=== PATIENT | female | born 1935 | race Caucasian/White ===

== ENCOUNTER 2023-11-24 12:08 | Inpatient (IN) ==
[2023-11-24 12:43] LABS: Basophils # (auto) 0.02 K/uL (0.00-0.20); Basophils % (auto) 0.2 %; Hemoglobin 15.4 g/dl (12.0-16.0); Immature Granulocytes # (auto) 0.04 K/uL (0.01-0.20); Immature Granulocytes % (auto) 0.4 %; Lymphocytes % (auto) 9.2 %; Mean Corpuscular Hemoglobin 33.1 pg (25.0-34.0); Mean Corpuscular Hgb Conc 34.2 g/dL (32.0-36.0); Mean Corpuscular Volume 96.8 fL (80.0-100.0); Mean Platelet Volume 9.6 fL (9.4-12.4); Monocytes # (auto) 1.07 K/uL (0.11-0.59); Monocytes % (auto) 10.9 %; Neutrophils # (auto) 7.75 K/uL (1.40-6.50); Neutrophils % (auto) 79.3 %; Platelet Count 183 K/uL (130-400); RDW Coefficient of Variation 11.8 % (11.5-14.5); RDW Standard Deviation 41.7 fL (36.4-46.3); Red Blood Count 4.65 M/uL (4.20-5.40); White Blood Count 9.78 K/ul (4.8-10.8)
[2023-11-24 12:48] LABS: Anion Gap 9 (3-11); BUN Creatinine Ratio 15.7 (10-20); Blood Urea Nitrogen 11 mg/dl (6-23); Calcium 9.1 mg/dl (8.6-10.3); Carbon Dioxide 26 mmol/L (21-32); Chloride 103 mmol/L (98-107); Est GFR (African American) 90.9 ml/min; Est GFR (Non-African American) 78.5 ml/min; Glucose 109 mg/dl (70-99(Fasting)); Potassium 4.1 mmol/L (3.5-5.1); Sodium 138 mmol/L (136-145)
--- NOTE | 2023-11-24 12:50 | CT Scan Report ---
CT OF THE HEAD WITHOUT CONTRAST CLINICAL HISTORY: fall, confusion COMPARISON STUDY: No previous studies for comparison. TECHNIQUE: Helical axial images of the head were obtained without IV contrast. Automated exposure con trol was utilized for the study. A dose lowering technique was utilized adhering to the principles o f ALARA. FINDINGS: No acute intracranial hemorrhage, midline shift or mass effect is present. Mild ventricular dilatation is likely due to central atrophy. Extensive white matter hypodense foci favor small vesse l disease. The basal cisterns are patent. No extra-axial collections are present. There are no findin gs to suggest acute dural sinus thrombosis or acute territorial infarct. No significant calvarial abn ormalities are present. Visualized portions of the sinuses and mastoid air cells are clear. IMPRESSION: 1. No acute intracranial findings. 2. No calvarial fractures. ACT 112: Negative or not required by law. Electronically signed by: Kolton Contreras M.D. 11/24/2023 12:49 PM
--- NOTE | 2023-11-24 12:57 | CT Scan Report ---
CT OF THE CERVICAL SPINE WITHOUT CONTRAST CLINICAL HISTORY: Fall, dementia, inc confusion COMPARISON STUDY: No previous studies for comparison. TECHNIQUE: Helical axial images of the cervical spine were obtained without IV contrast. Sagittal a nd coronal reconstructions were viewed. Automated exposure control was utilized for the study. A do se lowering technique was utilized adhering to the principles of ALARA. FINDINGS: Alignment of the cervical spine is anatomic. Vertebral body heights are maintained. No acut e cervical spine fracture or subluxation is present. There is no prevertebral edema. Facet joints are intact. Moderate multilevel disc space narrowing, endplate osteophytosis and facet arthrosis is pre sent. IMPRESSION: No acute cervical spine fracture or subluxation. ACT 112: Negative or not required by law. Electronically signed by: Kolton Contreras M.D. 11/24/2023 12:55 PM
--- NOTE | 2023-11-24 13:05 | XRay Report ---
XR hip LT 2V w pelvis CLINICAL HISTORY: fall, pain COMPARISON: None FINDINGS: Sacroiliac joints and symphysis pubis are intact. There are no acute fractures within the pelvis or hips. There are no osseous lesions. IMPRESSION: No fractures within the pelvis or hips. ACT 112: Negative or not required by law. Electronically signed by: Kolton Contreras M.D. 11/24/2023 1:04 PM
--- NOTE | 2023-11-24 13:54 | Emergency Department Note ---
Impression & Plan Acute UTI, Acute confusion ED Provider Note NAME: ALLAN FORBES AGE: 88 SEX: F : 1935 ARRIVES VIA: Ambulance INFORMANT: Patient, ED PROVIDER(S): Wilber Crum MD CHIEF COMPLAINT: Confusion, left hip pain HPI: This is an 88-year-old female history of dementia presenting for confusion/fall. Patient is a resident of [facility] and EMS was called for increased confusion and left hip pain. Patient had a ground-level fall yesterday. Unclear if head trauma, LOC or blood thinners. Patient history is accompanied by her ex- who states that she does have fairly advanced dementia and is nonverbal at this time. This is still more lethargic than her usual self. She is able to walk. Patient is arousable but is fairly fatigued upon my exam and unable to contribute any exam or questioning. ROS: Unable to obtain PHYSICAL EXAMINATION: General: Chronic ill-appearing Head: Normocephalic and atraumatic Eyes: Normal inspection, extraocular muscles intact Ear, nose, throat: Normal external exam Neck: Normal range of motion Respiratory: lungs clear to auscultation bilaterally Cardiovascular: Regular rate/rhythm, no murmur GI: Soft, nontender Extremities: Moves all extremities without obvious deformity Neuro: Arousable, symmetric facies Skin: Warm, dry, and intact MEDICAL DECISION MAKING: This is an 88-year-old female presenting for confusion/fall. Will do CT of the head/C-spine as she did have ground-level fall with unknown head trauma. In addition we will do basic blood work, hip x-ray of the leftthere is reported pain here without obvious deformity. -Patient CT imaging of the head and C-spine revealed no acute traumatic injury -X-ray of the left hip reveals no acute osseous fracture or dislocation by my independent interpretation -Patient's blood work shows no leukocytosis or anemia. No significant electrolyte disturbances. -Urinalysis is positive for signs of UTI. Will give ceftriaxone at this time -Attempted to ambulate the patient and she was unable to even sit up as per tech -Will admit the patient for increasing confusion secondary to UTI -discussed care with hospitalist, Dr Menard. Differential diagnosis: Intracranial hemorrhage, subdural hematoma, sepsis, UTI, hip fracture ER treatment provided: See below Diagnostics interpreted by me: ECG: None Cardiac Monitoring: An order was placed for continuous cardiac monitoring. The monitor shows a rate of 78 with sinus rhythm. Laboratory studies: As stated above and show below. Imaging studies: See below. Past Med/Surg History Problem List (Updated 11/24/23 @ 15:30 by Wilber Crum MD) Acute confusion (Acute) Acute UTI (Acute) Social History Smoking Status: Unknown if ever smoked Preferred Language: Maori Feels Safe at Home: Yes Results & Data (ED) Vital Signs Vital Signs - 24 hr 11/24/23 12:16 11/24/23 13:32 11/24/23 14:00 Temperature 37.1 C Temperature Source Axillary Pulse Rate 71 78 Pulse Rate [Apical] 80 Respiratory Rate 22 20 Blood Pressure 181/95 H Blood Pressure [Left Arm] 212/96 H Blood Pressure Mean 123 Blood Pressure Mean [Left Arm] 134 Pulse Oximetry 96 94 Oxygen Delivery Method Room Air Room Air Sepsis Recent Fever Within 48 Hours No Sepsis New/Unexplained Change in Mental Status N/A Sepsis Action Taken by Nursing No Action Required 11/24/23 14:53 11/24/23 15:23 Temperature Temperature Source Pulse Rate Pulse Rate [Apical] 87 80 Respiratory Rate 20 20 Blood Pressure Blood Pressure [Left Arm] 201/100 H 199/102 H Blood Pressure Mean Blood Pressure Mean [Left Arm] 133 134 Pulse Oximetry 96 95 Oxygen Delivery Method Room Air Room Air Sepsis Recent Fever Within 48 Hours Sepsis New/Unexplained Change in Mental Status Sepsis Action Taken by Nursing Laboratory Data 11/24/23 12:21 11/24/23 12:21 Lab Results 11/24/23 11/24/23 Range/Units 12:21 13:40 WBC 9.78 (4.8-10.8) K/ul RBC 4.65 (4.20-5.40) M/uL Hgb 15.4 (12.0-16.0) g/dl Hct 45.0 (37.0-47.0) % MCV 96.8 (80.0-100.0) fL MCH 33.1 (25.0-34.0) pg MCHC 34.2 (32.0-36.0) g/dL RDW Std Deviation 41.7 (36.4-46.3) fL RDW Coeff of William 11.8 (11.5-14.5) % Plt Count 183 (130-400) K/uL MPV 9.6 (9.4-12.4) fL Immature Gran % (Auto) 0.4 % Neut % (Auto) 79.3 % Lymph % (Auto) 9.2 % [place] % (Auto) 10.9 % Eos % (Auto) 0.0 % Baso % (Auto) 0.2 % Neut # (Auto) 7.75 H (1.40-6.50) K/uL Lymph # (Auto) 0.90 L (1.20-3.40) K/uL [place] # (Auto) 1.07 H (0.11-0.59) K/uL Eos # (Auto) 0.00 (0.00-0.50) K/uL Baso # (Auto) 0.02 (0.00-0.20) K/uL Immature Gran # (Auto) 0.04 (0.01-0.20) K/uL Sodium 138 (136-145) mmol/L Potassium 4.1 (3.5-5.1) mmol/L Chloride 103 (98-107) mmol/L Carbon Dioxide 26 (21-32) mmol/L Anion Gap 9 (3-11) BUN 11 (6-23) mg/dl Creatinine 0.70 (0.6-1.2) mg/dl Est Cr Clr Drug Dosing Not Reportable Est GFR ( Amer) 90.9 ml/min Est GFR (Non-Af Amer) 78.5 ml/min BUN/Creatinine Ratio 15.7 (10-20) Glucose 109 H (70-99(Fasting)) mg/dl Calcium 9.1 (8.6-10.3) mg/dl Urine Color Yellow Urine Appearance Cloudy A (Clear) Urine pH 6.0 (4.5-7.5) Ur Specific [place] 1.018 (1.000-1.030) Urine Protein Trace H (Negative) Urine Glucose (UA) Negative (Negative) Urine Ketones Trace H (Negative) Urine Blood Trace H (Negative) Urine Nitrite Positive A (Negative) Urine Bilirubin Negative (Negative) Urine Urobilinogen Negative (Negative) Ur Leukocyte Esterase 2+ H (Negative) Urine WBC (Auto) 21-50 H (0-5) /hpf Urine RBC (Auto) 0-2 (0-2) /hpf U Hyaline Cast (Auto) 0-2 (0-2) /lpf U Epithel Cells (Auto) 0-2 (0-2) /hpf Urine Bacteria (Auto) 4+ H (None Seen) Administered Medications Discontinued Medications Ceftriaxone Sodium (Rocephin) 2,000 mg in 50 mls @ 100 mls/hr IV NOW STA Stop: 11/24/23 14:56 Last Infusion: 11/24/23 15:07 Dose: Infused Documented By: Admin: 11/24/23 14:37 Dose: 100 mls/hr Documented By: [facility] Imaging Data Radiologist's Impression: Cervical Spine CT 11/24/23 12:21 CT OF THE CERVICAL SPINE WITHOUT CONTRAST CLINICAL HISTORY: Fall, dementia, inc confusion COMPARISON STUDY: No previous studies for comparison. TECHNIQUE: Helical axial images of the cervical spine were obtained without IV contrast. Sagittal and coronal reconstructions were viewed. Automated exposure control was utilized for the study. A dose lowering technique was utilized adhering to the principles of ALARA. FINDINGS: Alignment of the cervical spine is anatomic. Vertebral body heights are maintained. No acute cervical spine fracture or subluxation is present. There is no prevertebral edema. Facet joints are intact. Moderate multilevel disc space narrowing, endplate osteophytosis and facet arthrosis is present. IMPRESSION: No acute cervical spine fracture or subluxation. ACT 112: Negative or not required by law. Electronically signed by: Kolton Contreras M.D. 11/24/2023 12:[address] 11/24/23 12:21 CT OF THE HEAD WITHOUT CONTRAST CLINICAL HISTORY: fall, confusion COMPARISON STUDY: No previous studies for comparison. TECHNIQUE: Helical axial images of the head were obtained without IV contrast. Automated exposure control was utilized for the study. A dose lowering technique was utilized adhering to the principles of ALARA. FINDINGS: No acute intracranial hemorrhage, midline shift or mass effect is present. Mild ventricular dilatation is likely due to central atrophy. Extensive white matter hypodense foci favor small vessel disease. The basal cisterns are patent. No extra-axial collections are present. There are no findings to suggest acute dural sinus thrombosis or acute territorial infarct. No significant calvarial abnormalities are present. Visualized portions of the sinuses and mastoid air cells are clear. IMPRESSION: 1. No acute intracranial findings. 2. No calvarial fractures. ACT 112: Negative or not required by law. Electronically signed by: Kolton Contreras M.D. 11/24/2023 12:49 PM Hip/Pelvis X-Ray 11/24/23 12:21 XR hip LT 2V w pelvis CLINICAL HISTORY: fall, pain COMPARISON: None FINDINGS: Sacroiliac joints and symphysis pubis are intact. There are no acute fractures within the pelvis or hips. There are no osseous lesions. IMPRESSION: No fractures within the pelvis or hips. ACT 112: Negative or not required by law. Electronically signed by: Kolton Contreras M.D. 11/24/2023 1:04 PM Discharge Plan Visit Data Chief Complaint: Fall Stated Complaint: fall ED Provider: Wilber Crum Discharge Problem: Acute UTI, Acute confusion Forms Stand Alone Forms: [facility] Referrals Referrals: [facility] [Primary Care Provider] -
[2023-11-24 14:04] LABS: Appearance Urine Cloudy (Clear); Bacteria Urine Automated 4+ (None Seen); Bilirubin Urine Negative (Negative); Blood Urine Trace (Negative); Cast Urine Automated 0-2 /lpf (0-2); Color Urine Yellow; Epithelial Cell Urine Auto 0-2 /hpf (0-2); Glucose Urine UA Negative (Negative); Ketones Urine Trace (Negative); Leukocyte Esterase Urine 2+ (Negative); Nitrite Urine Positive (Negative); Protein Urine Trace (Negative); RBC Urine Automated 0-2 /hpf (0-2); Specific Gravity Urine 1.018 (1.000-1.030); Urobilinogen Urine Negative (Negative); WBC Urine Automated 21-50 /hpf (0-5)
[2023-11-24] MEDS: cefTRIAXone SODIUM 2,000 MG/50 ML BAG IV STA (14:37)
[2023-11-24] MEDS ORDERED: ONDANSETRON INJ 2 MG/ML 2 ML VIAL IV PRN (16:04)
--- NOTE | 2023-11-24 16:06 | History & Physical Report ---
Date of Service November 24, 2023 Assessment & Plan (1) Acute metabolic encephalopathy: (2) Complicated UTI (urinary tract infection): Plan Pt is an 88yoF with PMHx significant for dementia, HTN, asthma, RLS, insomnia presenting with a fall in the setting of concern for increased alteration in her mental status. Acute Metabolic Encephalopathy Complicated UTI Presenting from [facility] with concern for increased alteration in mental status and fall Known Hx of dementia UA suggestive of infection Urine Cx pending Head CT unremarkable No concerns for sepsis at this time Holding home sedating meds- melatonin, requip. Resume as able Delirium precautions with frequent reorientation Received dose of IV Rocephin in the ED Noted pt has had monthly UTIs in the last 2 months (last culture on November 20), cultures both grew E coli sensitive to Rocephin Continue with IV Rocephin at this time, follow repeat urine Cx Continue to monitor Fall Pt with unwitnessed fall at [facility] Head CT, hip/pelvis xray and cervical spine CT all unremarkable Likely in setting of UTI above PT/OT Hypertension Pt with known Hx of hypertension On Norvasc 2.5mg daily at home Currently uncontrolled, BP 193/90 PRN hydralazine Continue to monitor Continue other home meds as ordered CODE STATUS: DNR/DNI per [facility] documentation. Attempts to contact son and daughter listed in the chart unsuccessful. Diet: clears until improved mental status DVT prophylaxis: Lovenox SQ Dispo: Med/Surg History of Present Illness Chief Complaint: AMS Primary Care Provider: [facility] Pt is an 88yoF with PMHx significant for dementia, HTN, asthma, RLS, insomnia presenting with a fall in the setting of concern for increased alteration in her mental status. Pt unable to provide history due to cognitive status. Attempts made to contact pt's son and daughter listed in the chart via telephone with no one picking up. History obtained from [facility] records and ED provider. Pt had a fall at [facility] yesterday and per reports there was concern for worsening of her mental status. She has dementia at baseline for which she takes medication. There was concern for left hip pain and imaging was done in the ED which did not show any acute fractures. It was unknown whether the pt hit her head with the fall but head CT did not show an acute bleed. Workup in the ED revealed a UTI. Allergies Allergy/AdvReac Type Severity Reaction Status Date / Time No Known Allergies Allergy Unverified 11/24/23 15:49 Home Medications Medication Instructions Recorded Confirmed Type amlodipine 2.5 mg tablet 2.5 mg PO .DAILY AT 0800 11/24/23 11/24/23 History donepezil 5 mg tablet 5 mg PO .DAILY AT 1700 11/24/23 11/24/23 History melatonin 1 mg disintegrating 3 mg PO HS 11/24/23 11/24/23 History tablet memantine 10 mg tablet 10 mg PO BID 11/24/23 11/24/23 History montelukast 10 mg tablet 10 mg PO HS 11/24/23 11/24/23 History polyethylene glycol 3350 17 17 g PO DAILY PRN Constipation 11/24/23 11/24/23 History gram/dose oral powder (Miralax) ropinirole 0.5 mg tablet 0.5 mg PO BID 11/24/23 11/24/23 History Past Med/Surg History Problem List (Updated 11/24/23 @ 19:37 by Ryann Menard MD) Complicated UTI (urinary tract infection) Acute metabolic encephalopathy Acute confusion (Acute) Acute UTI (Acute) Social History Smoking Status: Unknown if ever smoked Preferred Language: Armenian Current Living Situation: Personal Care Facility Feels Safe at Home: Yes Assistive Devices Comment: per ed staff she is ambulatory at baseline Review of Systems Review of Systems: Unobtainable due to cognitive status Physical Exam Physical Exam: General: pt unarousable, mutters but does not open eyes Psych: lethargic Neuro: lethargic, does not awaken to verbal stimuli nor sternal rub HEENT: NC/AT CV: RRR Resp: Breath sounds clear bilaterally Abdomen: Soft Extremities: curled Results & Data Results & Data Vital Signs (Past 12 Hours) Vital Signs Temp Pulse Pulse Resp BP BP Pulse Ox 11/24/23 15:23 80 20 199/102 H 95 11/24/23 14:53 87 20 201/100 H 96 11/24/23 14:00 80 20 212/96 H 94 11/24/23 13:32 78 11/24/23 12:16 37.1 C 71 22 181/95 H 96 O2 Del Method 11/24/23 15:23 Room Air 11/24/23 14:53 Room Air 11/24/23 14:00 Room Air 11/24/23 13:32 11/24/23 12:16 Room Air Diagnostic Findings Cervical Spine CT 11/24/23 12:21 CT OF THE CERVICAL SPINE WITHOUT CONTRAST CLINICAL HISTORY: Fall, dementia, inc confusion COMPARISON STUDY: No previous studies for comparison. TECHNIQUE: Helical axial images of the cervical spine were obtained without IV contrast. Sagittal and coronal reconstructions were viewed. Automated exposure control was utilized for the study. A dose lowering technique was utilized adhering to the principles of ALARA. FINDINGS: Alignment of the cervical spine is anatomic. Vertebral body heights are maintained. No acute cervical spine fracture or subluxation is present. There is no prevertebral edema. Facet joints are intact. Moderate multilevel disc space narrowing, endplate osteophytosis and facet arthrosis is present. IMPRESSION: No acute cervical spine fracture or subluxation. ACT 112: Negative or not required by law. Electronically signed by: Kolton Contreras M.D. 11/24/2023 12:[address] 11/24/23 12:21 CT OF THE HEAD WITHOUT CONTRAST CLINICAL HISTORY: fall, confusion COMPARISON STUDY: No previous studies for comparison. TECHNIQUE: Helical axial images of the head were obtained without IV contrast. Automated exposure control was utilized for the study. A dose lowering technique was utilized adhering to the principles of ALARA. FINDINGS: No acute intracranial hemorrhage, midline shift or mass effect is present. Mild ventricular dilatation is likely due to central atrophy. Extensive white matter hypodense foci favor small vessel disease. The basal cisterns are patent. No extra-axial collections are present. There are no findings to suggest acute dural sinus thrombosis or acute territorial infarct. No significant calvarial abnormalities are present. Visualized portions of the sinuses and mastoid air cells are clear. IMPRESSION: 1. No acute intracranial findings. 2. No calvarial fractures. ACT 112: Negative or not required by law. Electronically signed by: Kolton Contreras M.D. 11/24/2023 12:49 PM Hip/Pelvis X-Ray 11/24/23 12:21 XR hip LT 2V w pelvis CLINICAL HISTORY: fall, pain COMPARISON: None FINDINGS: Sacroiliac joints and symphysis pubis are intact. There are no acute fractures within the pelvis or hips. There are no osseous lesions. IMPRESSION: No fractures within the pelvis or hips. ACT 112: Negative or not required by law. Electronically signed by: Kolton Contreras M.D. 11/24/2023 1:04 PM
[2023-11-24] MEDS ORDERED: Patient's HEIGHT &/or WEIGHT Needed STA (18:27)
[2023-11-24] MEDS: hydrALAZINE HCL 20 MG/ML VIAL IV ONE (19:40)
[2023-11-24] MEDS: ACETAMINOPHEN 1,000 MG/100 ML VIAL IV PRN (20:46)
[2023-11-24] MEDS: MONTELUKAST SODIUM 10 MG TABLET PO SCH (20:47)
[2023-11-24] MEDS: DONEPEZIL HCL 5 MG TAB PO SCH (20:47)
[2023-11-24] MEDS: ENOXAPARIN INJ 40 MG/0.4 ML SYR SQ SCH (20:47)
[2023-11-24] MEDS: MEMANTINE HCL 10 MG TAB PO SCH (20:47)
[2023-11-24] MEDS ORDERED: MELATONIN 3 MG TAB PO SCH (21:00)
[2023-11-24] MEDS ORDERED: rOPINIRole HCL 0.25 MG TABLET PO SCH (21:00)
[2023-11-25 06:53] LABS: Basophils # (auto) 0.03 K/uL (0.00-0.20); Basophils % (auto) 0.3 %; Eosinophils # (auto) 0.02 K/uL (0.00-0.50); Eosinophils % (auto) 0.2 %; Hematocrit (blood only) 44.8 % (37.0-47.0); Hemoglobin 15.3 g/dl (12.0-16.0); Immature Granulocytes # (auto) 0.03 K/uL (0.01-0.20); Immature Granulocytes % (auto) 0.3 %; Lymphocytes # (auto) 1.41 K/uL (1.20-3.40); Lymphocytes % (auto) 12.1 %; Mean Corpuscular Hgb Conc 34.2 g/dL (32.0-36.0); Mean Corpuscular Volume 96.8 fL (80.0-100.0); Monocytes # (auto) 1.78 K/uL (0.11-0.59); Monocytes % (auto) 15.3 %; Neutrophils # (auto) 8.38 K/uL (1.40-6.50); Neutrophils % (auto) 71.8 %; Platelet Count 165 K/uL (130-400); RDW Coefficient of Variation 11.9 % (11.5-14.5); RDW Standard Deviation 41.5 fL (36.4-46.3); Red Blood Count 4.63 M/uL (4.20-5.40); White Blood Count 11.65 K/ul (4.8-10.8)
[2023-11-25 07:23] LABS: Albumin Globulin Ratio 1.1 (0.9-2); Albumin Level 3.7 gm/dl (3.4-5.0); BUN Creatinine Ratio 25.4 (10-20); Bilirubin,Total 1.1 mg/dl (0.2-1.0); Calcium 8.9 mg/dl (8.6-10.3); Creatinine Clr Calc Pharmacy 42.9 ml/min; Est GFR (African American) 89.4 ml/min; Est GFR (Non-African American) 77.1 ml/min; Globulin 3.3 gm/dl (2.5-4.0); Potassium 3.8 mmol/L (3.5-5.1)
[2023-11-25] MEDS: amLODIPine BESYLATE 5 MG TAB PO SCH ×2 (09:11→21:11)
[2023-11-25] MEDS: cefTRIAXone SODIUM 2,000 MG/50 ML BAG IV SCH (13:00)
--- NOTE | 2023-11-25 13:34 | Hospitalist Progress Note ---
Date of Service November 25, 2023 Assessment & Plan (1) Acute metabolic encephalopathy: (2) Complicated UTI (urinary tract infection): Plan Ms. Penny is an 88yoF with PMHx significant for dementia, HTN, asthma, RLS, insomnia presenting with a fall in the setting of concern for increased alteration in her mental status. Patient resides at [facility]. #Acute metabolic encephalopathy #Late onset Alzheimer's disease with behavioral disturbance 2/2 ongoing infection, alert to self, lethargic this am Continue memantine and donepezil Delirium precautions with frequent reorientation #Abdominal pain unable to explain, some fullness of abdomen KUB bowel regimen #Acute complicated cystitis E coli UTI Continue on IV CTX, susceptible #Mild intermittent asthma without complication CTM #Mild protein-calorie malnutrition nutrition #Mechanical Fall #Osteoporosis Pt with unwitnessed fall at [facility] Head CT, hip/pelvis xray and cervical spine CT all unremarkable Likely in setting of UTI above PT/OT fall precautions # HTN novac 2.5mg daily will increase to bid labetalol 2.5mg q4h IV #RLS (restless legs syndrome) on requip, resume when able CODE STATUS: DNR/DNI per [facility] documentation. Attempts to contact son a nd daughter listed in the chart unsuccessful. 11/24 numbers in chart went straight to Diet: clears until improved mental status DVT prophylaxis: Lovenox SQ Dispo: Med/Surg Admission and Anticipated Discharge Date Admission Date: November 24, 2023 Subjective NAEO Patient awakens to loud verbal stimuli and responds appropriately mostly to questions--she states she knows where she is and the year, but when asked to explain, she cannot. She states her full name. She drifts to sleep in conversation. Reports abdominal pain, but cannot describe Physical Exam Constitutional: lethargic, frail woman Respiratory: normal respiratory effort, lungs clear to auscultation Cardiovascular: RRR, no murmur, no edema Gastrointestinal (Abdomen): soft but fullness noted in lower quadrants Results & Data Results & Data Vital Signs (Past 12 Hours) Vital Signs Pulse Resp BP Pulse Ox O2 Del Method 11/25/23 07:34 92 H 18 170/74 H 94 Room Air Laboratory Results Short CBC 11/25/23 Range/Units 05:59 WBC 11.65 H (4.8-10.8) K/ul Hgb 15.3 (12.0-16.0) g/dl Hct 44.8 (37.0-47.0) % Plt Count 165 (130-400) K/uL BMP 11/25/23 05:59 Sodium 138 Potassium 3.8 Chloride 103 Carbon Dioxide 24 BUN 18 Creatinine 0.71 Glucose 99 Calcium 8.9 Liver Function 11/25/23 Range/Units 05:59 Total Bilirubin 1.1 H (0.2-1.0) mg/dl AST 52 H (13-39) U/L ALT 15 (7-52) U/L Alkaline Phosphatase 62 (34-104) U/L Albumin 3.7 (3.4-5.0) gm/dl Urine 11/24/23 Range/Units 13:40 Urine Color Yellow Urine Appearance Cloudy A (Clear) Urine pH 6.0 (4.5-7.5) Ur Specific [place] 1.018 (1.000-1.030) Urine Protein Trace H (Negative) Urine Glucose (UA) Negative (Negative) Medications Administered Home Medications Medication Instructions Recorded Confirmed Last Taken amlodipine 2.5 mg tablet 2.5 mg PO .DAILY AT 0800 11/24/23 11/24/23 Unknown donepezil 5 mg tablet 5 mg PO .DAILY AT 1700 11/24/23 11/24/23 Unknown melatonin 1 mg disintegrating 3 mg PO HS 11/24/23 11/24/23 Unknown tablet memantine 10 mg tablet 10 mg PO BID 11/24/23 11/24/23 Unknown montelukast 10 mg tablet 10 mg PO HS 11/24/23 11/24/23 Unknown polyethylene glycol 3350 17 17 g PO DAILY PRN Constipation 11/24/23 11/24/23 Unknown gram/dose oral powder (Miralax) ropinirole 0.5 mg tablet 0.5 mg PO BID 11/24/23 11/24/23 Unknown Active Medications Generic Name Dose Route Start Last Admin Trade Name Freq PRN Reason Stop Dose Admin Donepezil HCl 5 mg 11/24/23 19:00 11/24/23 20:47 Donepezil Hcl 5 Mg Tab PO 12/24/23 18:59 Not Given DAILY@1700 [facility] Enoxaparin Sodium 40 mg 11/24/23 19:00 11/24/23 20:47 Enoxaparin Inj 40 Mg/0.4 Ml Syr SQ 12/24/23 18:59 40 mg Q24H BEBO Administration Acetaminophen 1,000 mg in 100 mls @ 400 mls/hr 11/24/23 16:04 11/25/23 10:19 Ofirmev IV 11/27/23 16:03 Infused Q8H PRN Infusion Pain or Fever Ceftriaxone Sodium 2,000 mg in 50 mls @ 100 mls/hr 11/25/23 14:00 11/25/23 13:00 Rocephin IV 12/05/23 13:59 100 mls/hr Q24H BEBO Administration Memantine 10 mg 11/24/23 21:00 11/25/23 09:19 Memantine Hcl 10 Mg Tab PO 12/24/23 20:59 10 mg BID BEBO Administration Montelukast Sodium 10 mg 11/24/23 21:00 11/24/23 20:47 Montelukast Sodium 10 Mg Tablet PO 12/24/23 20:59 Not Given HS BEBO
[2023-11-25] MEDS ORDERED: LABETALOL HCL IV 5 MG/ML 20ML IV PRN (13:36)
[2023-11-25] MEDS ORDERED: hydrALAZINE HCL 20 MG/ML VIAL IV PRN (13:44)
--- NOTE | 2023-11-25 14:05 | XRay Report ---
XR KUB/Abdomen 1 view CLINICAL HISTORY: abdominal pain TECHNIQUE: 1 view of the abdomen was obtained. Comparison: None available at the time of this dictation. FINDINGS: Lung bases are unremarkable. The osseous structures are grossly unremarkable. The bowel gas pattern i s nonobstructive. A moderate amount of stool is noted within the large bowel. IMPRESSION: Nonobstructive bowel gas pattern. ACT 112: Negative or not required by law. Electronically signed by: Vish Boston M.D. 11/25/2023 2:03 PM
[2023-11-25] MEDS: DOCUSATE SODIUM/SENNA 50/8.6MG TAB PO SCH (16:51)
[2023-11-25] MEDS: SODIUM CHLORIDE 0.9% 1,000 ML IV SCH (17:56)
[2023-11-26 08:14] LABS: Hematocrit (blood only) 42.3 % (37.0-47.0); Mean Corpuscular Hemoglobin 32.9 pg (25.0-34.0); Mean Corpuscular Hgb Conc 33.1 g/dL (32.0-36.0); Mean Corpuscular Volume 99.5 fL (80.0-100.0); Mean Platelet Volume 9.7 fL (9.4-12.4); Platelet Count 162 K/uL (130-400); RDW Standard Deviation 44.2 fL (36.4-46.3); Red Blood Count 4.25 M/uL (4.20-5.40); White Blood Count 9.23 K/ul (4.8-10.8)
[2023-11-26] MEDS: POLYETHYLENE (MIRALAX) 17 GM PACK PO PRN (08:15)
[2023-11-26 08:29] LABS: Magnesium 2.3 mg/dl (1.7-2.4); Potassium 4.1 mmol/L (3.5-5.1)
[2023-11-26 08:34] LABS: Creatinine Clr Calc Pharmacy 41.7 ml/min; Est GFR (African American) 86.4 ml/min; Est GFR (Non-African American) 74.6 ml/min; Phosphorus 3.3 mg/dl (2.5-4.9)
--- NOTE | 2023-11-26 14:10 | Hospitalist Progress Note ---
Date of Service November 26, 2023 Assessment & Plan (1) Acute metabolic encephalopathy: (2) Complicated UTI (urinary tract infection): Plan Ms. Penny is an 88yoF with PMHx significant for dementia, HTN, asthma, RLS, insomnia presenting with a fall in the setting of concern for increased alteration in her mental status. Patient resides at [facility]. #Acute metabolic encephalopathy #Late onset Alzheimer's disease with behavioral disturbance 2/2 ongoing infection, alert to self but confused Continue memantine and donepezil Delirium precautions with frequent reorientation pt with dark jolly urine, decreased output today discussed with nursing who will encourage oral intake, will also give 1L of IVF this evening #Abdominal pain unable to explain, some fullness of abdomen KUB bowel regimen #Acute complicated cystitis E coli UTI Continue on IV CTX, susceptible day #3, transition to oral at discharge #Mild intermittent asthma without complication CTM #Mild protein-calorie malnutrition nutrition #Mechanical Fall #Osteoporosis Pt with unwitnessed fall at [facility] Head CT, hip/pelvis xray and cervical spine CT all unremarkable Likely in setting of UTI above PT/OT fall precautions # HTN novac 2.5mg daily was increased to BID BP acceptable today systolically in 140s hydralazine IV Prn, she has not needed yet #RLS (restless legs syndrome) on requip, resume when able CODE STATUS: DNR/DNI per [facility] documentation. Discussed with CM, pt to return to [facility] per son request and they will do PT/OT there, given her dementia they do not feel she would do well at rehab and wish for her to go back to [facility] Diet: regular DVT prophylaxis: Lovenox SQ Dispo: Med/Surg A total of 45 minutes was spent coordinating, documenting, and providing care for this patient excluding time spent in the performance of separately billed services. This included personally viewing all current laboratories and imaging studies, medication reconciliation, outpatient chart review, and discussion with specialists. Admission and Anticipated Discharge Date Admission Date: November 24, 2023 Supervising Physician Co-Signing Physician Notes pt was not seen by myself. Subjective Pt was seen and examined in 386-1. F/U UTI. ROS unreliable due to cognition. Nursing reports Right leg pain when trying to ambulate. Pt unable to describe. Review of Systems Review of Systems: Unobtainable due to cognitive status Physical Exam 2 Physical Exam: Gen: thin, petite, F, NAD, Alert but not oriented HEENT: Normocephalic, atraumatic, conjunctivae moist, sclerae anicteric, mucous membranes dry. Lung: Clear to Auscultation bilaterally, no wheezes/rales/rhonchi Heart: Regular rate, regular rhythm, no murmurs, rubs, or gallops Abdomen: Soft, NT, ND +BS x 4 Extremities: No edema Skin: Warm, no rash, negative turgor. : purwic canister with jolly urine Results & Data Results & Data Vital Signs (Past 12 Hours) Vital Signs Temp Pulse Pulse Resp BP Pulse Ox O2 Del Method 11/26/23 07:37 36.5 C 64 16 144/76 H 96 Room Air 11/26/23 05:28 37.1 C 61 16 141/66 H 96 Room Air Medications Administered Current Inpatient Medications Amlodipine Besylate (Amlodipine Besylate 5 Mg Tab) 2.5 mg PO BID [facility] Stop: 12/25/23 20:59 Last Admin: 11/26/23 08:10 Dose: 2.5 mg Donepezil HCl (Donepezil Hcl 5 Mg Tab) 5 mg PO DAILY@1700 [facility] Stop: 12/24/23 18:59 Last Admin: 11/25/23 16:50 Dose: 5 mg Enoxaparin Sodium (Enoxaparin Inj 40 Mg/0.4 Ml Syr) 40 mg SQ Q24H [facility] Stop: 12/24/23 18:59 Last Admin: 11/25/23 17:59 Dose: 40 mg Hydralazine HCl (Hydralazine Hcl 20 Mg/Ml Vial) 5 mg IV Q6H PRN PRN Reason: systolic BP > 175 Stop: 12/25/23 13:43 Acetaminophen (Ofirmev) 1,000 mg in 100 mls @ 400 mls/hr IV Q8H PRN PRN Reason: Pain or Fever Stop: 11/27/23 16:03 Last Infusion: 11/26/23 08:51 Dose: Infused Ceftriaxone Sodium (Rocephin) 2,000 mg in 50 mls @ 100 mls/hr IV Q24H [facility] Stop: 12/05/23 13:59 Last Infusion: 11/25/23 14:10 Dose: Infused Melatonin (Melatonin 3 Mg Tab) 3 mg PO [facility] Stop: 12/24/23 20:59 Memantine (Memantine Hcl 10 Mg Tab) 10 mg PO BID [facility] Stop: 12/24/23 20:59 Last Admin: 11/26/23 08:10 Dose: 10 mg Montelukast Sodium (Montelukast Sodium 10 Mg Tablet) 10 mg PO [facility] Stop: 12/24/23 20:59 Last Admin: 11/25/23 21:11 Dose: 10 mg Ondansetron HCl (Ondansetron Inj 2 Mg/Ml 2 Ml Vial) 4 mg IV Q6H PRN PRN Reason: Nausea And Vomiting Stop: 12/24/23 16:03 Polyethylene Glycol (Polyethylene (Miralax) 17 Gm Pack) 17 gm PO DAILY PRN PRN Reason: Constipation Stop: 12/24/23 18:48 Last Admin: 11/26/23 08:15 Dose: 17 gm Ropinirole HCl (Ropinirole Hcl 0.25 Mg Tablet) 0.5 mg PO BID [facility] Stop: 12/24/23 20:59 Senna/Docusate Sodium (Docusate Sodium/Senna 50/8.6mg Tab) 1 tab PO QAM [facility] Stop: 12/25/23 13:44 Last Admin: 11/26/23 08:10 Dose: 1 tab
[2023-11-26] MEDS: SODIUM CHLORIDE 0.9% 500 ML IV SCH (14:30)
[2023-11-27 08:28] LABS: BUN Creatinine Ratio 29.6 (10-20); Calcium 8.1 mg/dl (8.6-10.3); Creatinine Clr Calc Pharmacy 56.4 ml/min; Est GFR (Non-African American) 85.4 ml/min; Potassium 3.7 mmol/L (3.5-5.1)
[2023-11-27 08:29] LABS: Basophils # (auto) 0.03 K/uL (0.00-0.20); Basophils % (auto) 0.4 %; Eosinophils # (auto) 0.09 K/uL (0.00-0.50); Eosinophils % (auto) 1.2 %; Hematocrit (blood only) 40.9 % (37.0-47.0); Hemoglobin 13.9 g/dl (12.0-16.0); Immature Granulocytes # (auto) 0.03 K/uL (0.01-0.20); Immature Granulocytes % (auto) 0.4 %; Lymphocytes # (auto) 0.75 K/uL (1.20-3.40); Lymphocytes % (auto) 10.1 %; Mean Corpuscular Hemoglobin 32.9 pg (25.0-34.0); Mean Corpuscular Volume 96.9 fL (80.0-100.0); Mean Platelet Volume 9.5 fL (9.4-12.4); Monocytes % (auto) 10.8 %; Neutrophils % (auto) 77.1 %; Platelet Count 175 K/uL (130-400); RDW Coefficient of Variation 11.7 % (11.5-14.5); RDW Standard Deviation 41.8 fL (36.4-46.3); Red Blood Count 4.22 M/uL (4.20-5.40)
--- NOTE | 2023-11-27 12:40 | Discharge Summary ---
Date of Service November 27, 2023 Admission HPI Per Admitting Provider Pt is an 88yoF with PMHx significant for dementia, HTN, asthma, RLS, insomnia presenting with a fall in the setting of concern for increased alteration in her mental status. Pt unable to provide history due to cognitive status. Attempts made to contact pt's son and daughter listed in the chart via telephone with no one picking up. History obtained from [facility] records and ED provider. Pt had a fall at [facility] yesterday and per reports there was concern for worsening of her mental status. She has dementia at baseline for which she takes medication. There was concern for left hip pain and imaging was done in the ED which did not show any acute fractures. It was unknown whether the pt hit her head with the fall but head CT did not show an acute bleed. Workup in the ED revealed a UTI. Admission Exam Per Admitting Provider General: pt unarousable, mutters but does not open eyes Psych: lethargic Neuro: lethargic, does not awaken to verbal stimuli nor sternal rub HEENT: NC/AT CV: RRR Resp: Breath sounds clear bilaterally Abdomen: Soft Extremities: curled Principal Diagnosis Acute metabolic encephalopathy Late onset Alzheimer's disease with behavioral disturbance Acute complicated cystitis Discharge Exam Gen: thin, petite, F, NAD, Alert but not oriented HEENT: Normocephalic, atraumatic, conjunctivae moist, sclerae anicteric, mucous membranes dry. Lung: Clear to Auscultation bilaterally, no wheezes/rales/rhonchi Heart: Regular rate, regular rhythm, no murmurs, rubs, or gallops Abdomen: Soft, NT, ND +BS x 4 Extremities: No edema Skin: Warm, no rash, negative turgor. : purwic canister with jolly urine Discharge Data Allergies Allergy/AdvReac Type Severity Reaction Status Date / Time No Known Allergies Allergy Unverified 11/24/23 15:49 Consultations 11/24/23 15:08 ED Decision to Admit Stat Ordered Studies 11/24/23 12:21 CT cervical spine wo con Stat CT head/brain wo con Stat Hospital Course (1) Acute metabolic encephalopathy: (2) Complicated UTI (urinary tract infection): Plan Ms. Penny is an 88yoF with PMHx significant for dementia, HTN, asthma, RLS, insomnia presenting with a fall in the setting of concern for increased alteration in her mental status. Patient resides at [facility]. She was managed for the following: #Acute metabolic encephalopathy #Late onset Alzheimer's disease with behavioral disturbance 2/2 ongoing infection, alert to self but confused Continue memantine and donepezil Delirium precautions with frequent reorientation Encourage oral intake #Abdominal pain: Seems to have resolved, KUB x-ray reviewed. #Acute complicated cystitis E coli UTI Continue on IV CTX, To p.o. antibiotic on discharge. Add probiotics. #Mild intermittent asthma without complication CTM #Mild protein-calorie malnutrition nutrition #Mechanical Fall #Osteoporosis Pt with unwitnessed fall at [facility] Head CT, hip/pelvis xray and cervical spine CT all unremarkable Likely in setting of UTI above PT/OT fall precautions # HTN novac 2.5mg daily was increased to BID BP fairly better. #RLS (restless legs syndrome) on requip, Continue CODE STATUS: DNR/DNI per [facility] documentation. Discussed with CM, pt to return to [facility] per son request and they will do PT/OT there, given her dementia they do not feel she would do well at rehab and wish for her to go back to [facility] Diet: regular DVT prophylaxis: Lovenox SQ Dispo: Med/Surg patient is being discharged back to [facility] with following instruction at the point of discharge: Follow-up with your primary care physician within a week time and likely you will need labs CBC/CMP/magnesium/phosphorus. You will be discharged on antibiotic to complete the course for UTI. Take your medications as prescribed. Please make sure that you are able to get your medications today by calling your pharmacy before you leave the hospital so that your treatment continuity is not broken. Home Health Attestation I certify that this patient is under my care and that I, or a physicians occupational therapist assistant working with me, had a face to-face encounter that meets the home health [id number] encounter requirements with this patient. The encounter with the patient was in whole, or in part, for the following medical condition, which is the primary reason for home health care (list medical condition): I certify that, based on my findings, the following services are medically necessary home health services: My clinical findings support the need for the above services because: Further, I certify that my clinical findings support that this patient is homebound (i.e. absences from home require considerable and taxing effort and are for medical reasons or rastafarian services or infrequently or of short duration when for other reasons) because: Certification for Home Health Services: Based on the above findings, I certify that this patient is confined to the home and needs intermittent penitentiary care, physical therapy and/or speech therapy or continues to need occupational therapy. The patient is under my care, and I have initiated the establishment of the plan of care. This patient will be followed by a physician who will periodically review the plan of care. Total Time Total Time Spent Total Time Spent (In Minutes): 45 Discharge Plan Discharge Items Patient Disposition: Home - Home Health Services Reason For Visit: AMS Discharge Diagnosis: Acute metabolic encephalopathy Late onset Alzheimer's disease with behavioral disturbance Acute complicated cystitis Activity: Resume your previous activity Non-emergency contact: Primary Care Provider Call non-emergency contact if: you have any medication questions and your symptoms worsen Follow-up/Referrals: Rich McleodCrooks [Primary Care Provider] - Diet: Regular and Finger Foods Addtl Attending Provider Instructions: Follow-up with your primary care physician within a week time and likely you will need labs CBC/CMP/magnesium/phosphorus. You will be discharged on antibiotic to complete the course for UTI. Take your medications as prescribed. Please make sure that you are able to get your medications today by calling your pharmacy before you leave the hospital so that your treatment continuity is not broken. Pending Studies at Discharge: No Stand-Alone Forms: [facility] Vision, Smoking Cessation Medications and DC Order Prescriptions: New cefdinir 300 mg capsule 300 mg PO BID 5 Days Qty: 10 0RF Probiotic 3 billion cell capsule 3,000 mmu cells PO DAILY 7 Days Qty: 7 0RF Rx Instructions: administer with a meal Continued donepezil 5 mg tablet 5 mg PO .DAILY AT 1700 montelukast 10 mg tablet 10 mg PO HS polyethylene glycol 3350 [Miralax] 17 gram/dose Powder 17 g PO DAILY PRN (Reason: Constipation) memantine 10 mg tablet 10 mg PO BID melatonin 1 mg Tablet,Disintegrating 3 mg PO HS ropinirole 0.5 mg tablet 0.5 mg PO BID Changed amlodipine 2.5 mg tablet 2.5 mg PO BID Qty: 60 0RF Discharge Orders: Discharge Order (Routine); Ordered 11/27/23 Ordered By: Natali Jauregui Admission Data Admit Date/Time: 11/24/23 16:00 Attending Provider: Natali Jauregui Admit Provider: Ryann Menard Primary Care Provider: Rich McleodCrooks Other Providers: Ryann Menard; MEDI,HOME HEALTH
== END 2023-11-27 13:40 | disposition home health service (06) | DRG 689 ==
LOC: ED 12:08 → 3N 16:00 → SUATTDRO 16:00 → 3N 17:11